=== PATIENT | female | born 1945 | race Caucasian/White ===

== ENCOUNTER 2023-08-26 07:39 | Emergency (ER) | payer MEDICARE, OTHER, SELFPAY ==
[2023-08-26 07:45] VITALS: BP 129/74
--- NOTE | 2023-08-26 08:15 | ED.GENMED ---
History of Present Illness
General
Chief Complaint: Fainting/Passed Out
Source: patient
Exam Limitations: none
Time Seen by Provider: 08/26/23 07:53
Travel History
Have you had any contact with someone who has COVID-19?: No
Do you have any symptoms of coronavirus? Fever > 100 degrees, chills, cough, shortness of breath, sore throat, loss of taste or smell, muscle aches, or headache?: No
History of Present Illness
History of Present Illness:
78-year-old female presents complaining of injury to the posterior head. She had taken a laxative and was back and forth to the bathroom. She had a bowel movement and developed sweaty sensation and lightheaded. She stood up and then
She members waking up on the floor. She found some blood on the floor. She denies headache. She is not anticoagulated. No neck pain. No preceding chest pain. She drove herself here. No other complaints at this time
Past History
Past History
ED Past Medical History: Hypercholesterolemia
ED Past Surgical History: Other (Eye surgery= Lazer Peripheral iridotomy)
Social History
Tobacco: Non-smoker
Alcohol: Daily
Personal:
Living: with family
Phy Exam
Physical Exam
Physical Exam:
General: Well-appearing female no acute respiratory distress
HEENT: Normocephalic 2 cm laceration posterior scalp pupils equal round reactive to light musculoskeletal exam: Cervical spine is nontender to palpation
Neurologic: Alert normal gait conversing appropriately no facial asymmetry
Heart: Regular rate and rhythm no murmurs
Course
Orders/Labs/Results
Orders:
Orders
08/26/23 07:51
Electrocardiogram (*1) Urgent
Reason for Study: Syncope
EKG- Treatment ONCE
08/26/23 08:05
CT Head W/o Iv Contrast Urgent
Comment:
Reason For Exam: fall
Vital Signs
Initial and Last Documented VS:
Initial Vital Signs
Temp Pulse Resp BP Pulse Ox
98.4 F 69 16 129/74 98
08/26/23 07:45 08/26/23 07:45 08/26/23 07:45 08/26/23 07:45 08/26/23 07:45
Last Documented Vital Signs
Temp Pulse Resp BP Pulse Ox
98.4 F 69 16 129/74 98
08/26/23 07:45 08/26/23 07:45 08/26/23 07:45 08/26/23 07:45 08/26/23 07:45
MDM/Problems Addressed
Differential Diagnosis Includes:
Scalp laceration. Evaluate for intracranial injury with CT of the head. Cyst syncope today was a vasovagal episode related to using laxative and having a bowel movement. EKG shows sinus bradycardia. She has no complaints of chest pain. Looks
well other.
*Critical Care Note
Total Time (30-74mins, 75-104mins- exclusive of procedures): Not Applicable
Update Note
Update Note:
CT of the head negative for acute finding. Patient reassured. Instructions were to have vanessa removed in 7 days. Patient is going to be in [place] in 7 days. Staple removal was given to her for her family to remove them. Her family is capable.
ED Attending Note
-
Portions of this chart may have been created with voice recognition software.� Occasional wrong word or��sound alike� substitutions may have occurred due to the inherent limitations of voice recognition software.
Discharge Plan
Departure
Patient Disposition: Home (Routine Discharge)
Date of Disposition: 08/26/23
Time of Disposition: 09:12
Patient with high blood pressure during this ER visit?: No
Discharge Problem:
Laceration
Instructions: Syncope (Fainting) (DC)
Prescriptions:
No Action
multivitamin [Daily Vitamin] 1 EACH tablet
1 ea PO DAILY
Patient Comments:
'Nutrafol Supplement'
polyethylene glycol 3350 17 GRAMS powder in packet
17 grams PO DAILY
simvastatin 40 MG tablet
40 mg PO QPM
fluticasone propionate [Flonase] 16 GM spray,suspension
16 gm NS DAILY
loratadine 10 MG tablet
10 mg PO PRN PRN (Reason: ALLERGIES)
Probiotic Capsule
1 mg PO DAILY
Prevagen Tab
1 tab PO DAILY
Activity Restrictions/Additional Instructions:
Have vanessa removed in 7 days. You can take Tylenol if needed for pain. Return if needed otherwise follow-up with family doctor
Interventions
Interventions:
*Risk Screen - Suicide Last Done: 08/26/23 08:52
*Neglect/Abuse Screening Last Done: 08/26/23 08:52
ED- Fall Risk Assessment Last Done: 08/26/23 08:57
*ED COVID-19 Vaccine History Last Done: 08/26/23 07:45
ED- Cardiac Assessment Last Done: 08/26/23 08:52
ED- Neurological Assessment Last Done: 08/26/23 08:52
Discharge Date and Time
Print Language: GERMAN
[2023-08-26 09:33] VITALS: BP 136/74
== END 2023-08-26 09:34 | disposition home or self-care (01) ==
LOC: EMR 07:39
PROVIDERS: EMERGENCY PHYSICIAN Emergency Medicine; FAMILY PHYSICIAN Family Medicine
DX: S01.01XA Laceration without foreign body of scalp, initial encounter (principal); W19.XXXA Unspecified fall, initial encounter
CPT/HCPCS: 99284; 70450; 93005

== ENCOUNTER → 2023-10-04 07:46 | Outpatient (REF) | payer MEDICARE, OTHER, SELFPAY | LOC: HWRAD 07:46 | PROVIDERS: ATTENDING PHYSICIAN Internal Medicine Gastroenterology; FAMILY PHYSICIAN Family Medicine | DX: R14.0 Abdominal distension (gaseous) (principal); K58.1 Irritable bowel syndrome with constipation; K59.02 Outlet dysfunction constipation; D49.0 Neoplasm of unspecified behavior of digestive system | CPT/HCPCS: 74177; Q9967 ==

== ENCOUNTER → 2023-12-18 15:02 | Outpatient (REF) | payer MEDICARE, OTHER, SELFPAY | LOC: WDC 15:02 | PROVIDERS: ATTENDING PHYSICIAN Obstetrics & Gynecology; FAMILY PHYSICIAN Family Medicine | DX: Z12.31 Encounter for screening mammogram for malignant neoplasm of breast (principal) | CPT/HCPCS: 77063; 77067 ==

== ENCOUNTER → 2024-12-18 07:28 | Outpatient (REF) | payer MEDICARE, OTHER, SELFPAY | LOC: WDC 07:28 | PROVIDERS: ATTENDING PHYSICIAN Family Medicine | DX: Z12.31 Encounter for screening mammogram for malignant neoplasm of breast (principal) | CPT/HCPCS: 77063; 77067 ==

== ENCOUNTER → 2025-02-03 13:36 | Outpatient (REF) | payer MEDICARE, OTHER, SELFPAY ==
[2025-02-03 15:50] LABS: Blood Urea Nitrogen 28 mg/dl (7-17); eGFR > 60.00
== END ==
LOC: REG 13:36
PROVIDERS: ATTENDING PHYSICIAN Student in an Organized Health Care Education/Training Program; FAMILY PHYSICIAN Family Medicine
DX: J38.00 Paralysis of vocal cords and larynx, unspecified (principal)
CPT/HCPCS: 36415; 82565; 84520

== ENCOUNTER → 2025-02-09 13:09 | Outpatient (REF) | payer MEDICARE, OTHER, SELFPAY | LOC: RAD 13:09 | PROVIDERS: ATTENDING PHYSICIAN Student in an Organized Health Care Education/Training Program; FAMILY PHYSICIAN Family Medicine | DX: J38.00 Paralysis of vocal cords and larynx, unspecified (principal) | CPT/HCPCS: 70491; 71260; Q9967 ==

== ENCOUNTER 2025-02-12 09:27 | Outpatient (RCR) | payer MEDICARE, OTHER, SELFPAY | END 2025-02-12 23:59 | disposition home or self-care (01) | LOC: RST 09:27 | PROVIDERS: ATTENDING PHYSICIAN Student in an Organized Health Care Education/Training Program; FAMILY PHYSICIAN Family Medicine | DX: J38.3 Other diseases of vocal cords (principal); R49.0 Dysphonia | CPT/HCPCS: 92507; 92524 ==

== ENCOUNTER → 2025-02-19 11:11 | Outpatient (REF) | payer MEDICARE, OTHER, SELFPAY | LOC: RAD 11:11 | PROVIDERS: ATTENDING PHYSICIAN Obstetrics & Gynecology; FAMILY PHYSICIAN Family Medicine | DX: M81.0 Age-related osteoporosis without current pathological fracture (principal) | CPT/HCPCS: 77080 ==

== ENCOUNTER 2025-03-03 08:46 | Outpatient (RCR) | payer MEDICARE, OTHER, SELFPAY | END 2025-03-03 23:59 | disposition home or self-care (01) | LOC: RST 08:46 | PROVIDERS: ATTENDING PHYSICIAN Student in an Organized Health Care Education/Training Program; FAMILY PHYSICIAN Family Medicine | DX: J38.3 Other diseases of vocal cords (principal); R49.0 Dysphonia | CPT/HCPCS: 92507 ==

== ENCOUNTER 2025-04-13 07:02 | Outpatient (RCR) | payer MEDICARE, OTHER, SELFPAY | END 2025-04-13 23:59 | disposition home or self-care (01) | LOC: RST 07:02 | PROVIDERS: ATTENDING PHYSICIAN Student in an Organized Health Care Education/Training Program; FAMILY PHYSICIAN Family Medicine | DX: J38.3 Other diseases of vocal cords (principal); R49.0 Dysphonia | CPT/HCPCS: 92507 ==

== ENCOUNTER → 2025-05-11 07:39 | Outpatient (REF) | payer MEDICARE, OTHER, SELFPAY | LOC: HWRAD 07:39 | PROVIDERS: ATTENDING PHYSICIAN Internal Medicine Critical Care Medicine; FAMILY PHYSICIAN Family Medicine | DX: R91.8 Other nonspecific abnormal finding of lung field (principal) | CPT/HCPCS: 71250 ==

== ENCOUNTER 2025-05-19 07:08 | Outpatient (RCR) | payer MEDICARE, OTHER, SELFPAY | END 2025-05-19 23:59 | disposition home or self-care (01) | LOC: RST 07:08 | PROVIDERS: ATTENDING PHYSICIAN Student in an Organized Health Care Education/Training Program; FAMILY PHYSICIAN Family Medicine | DX: J38.3 Other diseases of vocal cords (principal); R49.0 Dysphonia | CPT/HCPCS: 92507 ==